=== PATIENT | male | born 1990 | race Hispanic/Latino ===

== ENCOUNTER 2023-07-12 20:49 | Observation (INO) | payer OTHER, SELFPAY ==
--- OUTSIDE RECORDS SUMMARY | 2023-07-12 20:52 | XMS REPORT | Continuity of Care Document ---
:1990 Author Organization [facility] t Address [address] [facility] [place] [address] Care Team Providers Name Role Phone Unavailable Unavailable Unavailable Payers Payer Name Policy Type Policy Number Effective Date Expiration Date S ource Problems This patient has no known problems. Allergies, Adverse Reactions, Alerts Allergy Allergy Status Severity Reaction(s) Onset Inactive Treating Comm ents Source Name Type Date Date Clinician No Known DA Active U [facility] Allergie 03-03 Clear s 00:00: Nevarez [address] [place] [address] Medications This patient has no known medications. Procedures This patient has no known procedures. Encounters Start End Encounter Admission Attending Care Care Encounter Source Date/Time Date/Time Type Type Clinicians Facility Department ID 2020-11-08 Inpatient [facility] [id number] [facility]:39[facility] Test Description Test Time Test Comments Results Result Comments Source UA RFLX MICR CULT IF INDICATED 2020-11-09 03:54:00 Test Item Value Reference Range Interpretation Comme nts UA COLOR (test code = COLU) YELLOW YEL/STRAW UA APPEARANCE (test code = APPU) CLEAR CLEAR UA GLUCOSE DIPSTICK (test code = DGLUU) NEGATIVE NEGATIVE UA BILIRUBIN DIPSTICK (test code = BILU) NEGATIVE NEGATIVE UA KETONE DIPSTICK (test code = KETU) NEGATIVE NEGATIVE UA SPECIFIC GRAVITY (test code = SGU) 1.010 1.005-1.030 N UA BLOOD DIPSTICK (test code = HORACE) NEGATIVE NEGATIVE UA PH DIPSTICK (test code = EDEL) 5.0 5.0-7.0 N UA PROTEIN DIPSTICK (test code = PROU) 2+ NEGATIVE A UA UROBILINIOGEN DIPSTICK (test code = URO) 0.2 mg/dL 0.2-1.0 UA NITRITE DIPSTICK (test code = EDWIGE) NEGATIVE NEGATIVE UA LEUKOCYTE ESTERASE DIPSTICK (test code = LEUU) NEGATIVE NEGA TIVE UA WBC (test code = WBCU) 0-3 WBC/HPF 0-3 UA RBC (test code = RBCU) 4-10 RBC/HPF 0-3 UA WBC NO REFLEX (test code = WBCUCL) 0-3 WBC/HPF 0-3 UA BACTERIA (test code = BACU) NONE SEEN /HPF NONE SEEN UA SQUAMOUS CELLS (test code = SQU) 0-5 /HPF NONE SEEN UA MUCUS (test code = MUCU) 1+ /LPF NONE SEEN Indication for culture: Flank PainSpecimen Description: CLEAN CATCHUA RFLX MICR CULT IF [id number] 00:27:00 Test Item Value Reference Range Interpretation Comments UA COLOR (test code = COLU) YELLOW YEL/STRAW UA APPEARANCE (test code = CLEAR CLEAR APPU) UA GLUCOSE DIPSTICK (test code NEGATIVE = DGLUU) UA BILIRUBIN DIPSTICK (test NEGATIVE code = BILU) UA KETONE DIPSTICK (test code NEGATIVE = KETU) UA SPECIFIC GRAVITY (test code 1.005-1.030 = SGU) UA BLOOD DIPSTICK (test code = NEGATIVE HORACE) UA PH DIPSTICK (test code = 5.0-7.0 N EDEL) UA PROTEIN DIPSTICK (test code NEGATIVE = PROU) UA UROBILINIOGEN DIPSTICK mg/dL 0.2-1.0 (test code = URO) UA NITRITE DIPSTICK (test code NEGATIVE = EDWIGE) UA LEUKOCYTE ESTERASE DIPSTICK NEGATIVE (test code = LEUU) UA WBC (test code = WBCU) 0-3 WBC/HPF 0-3 UA RBC (test code = RBCU) 4-10 RBC/HPF 0-3 UA WBC NO REFLEX (test code = 0-3 WBC/HPF 0-3 WBCUCL) UA BACTERIA (test code = BACU) NONE SEEN /HPF NONE SEEN UA SQUAMOUS CELLS (test code = 0-5 /HPF NONE SEEN SQU) UA MUCUS (test code = MUCU) 1+ /LPF NONE SEEN Indication for culture: Flank PainSpecimen Description: CLEAN CATCH- CT ABD PELVIS [id number] 23:52:00 [facility] 1990 Sex: M Name: TIMMY THOMSON [facility] : 1990 Age/S: 30 / M [address] [place] [address] Blvd Unit #: [id number] Loc: [place] [address] Phys: Juliet Morgan TRAINING PROGRAM DEVELOPER Acct: [id number] Dis Date: Status: REG ER PHONE #: [phone] Exam Date: 11/08/2020 2308 FAX #: [phone] Reason: diffuse abdominal pain EXAMS: CPT CODE: [id number] CT ABD PELVIS W/CONT 18170 CT abdomen and pelvis with contrast dated 11/08/2020 INDICATION: Diffuse abdominal pain. COMPARISON: None. TECHNIQUE: A CT of the abdomen pelvis was performed using helical images from the thoracic outlet through the pubic symphysis with subsequent sagittal and coronal reconstruction. IV CONTRAST: 100 cc of Isovue-300 GI CONTRAST: None. CT imaging performed at this location utilizes radiation dose optimization techniques which include one or more of the followin) Automated exposure control; 2) Adjustment of mA and/or kV; 3) Use of iterative reconstructive technique. CT radiation dose DLP (mGy-cm): 156. FINDINGS: SOLID ORGANS: No acute CT abnormalities of the liver, spleen, pancreas, adrenal glands or kidneys are detected. There is no CT evidence of acute renal collecting system obstruction or calcified renal collecting system stone. BILIARY: The gallbladder is normally distended. No significant biliary ductal dilatation is identified. BOWEL: Bowel assessment is limited by the absence of bowel contrast. The stomach is distended but is otherwise unremarkable. The presence of increased gas and fluid within nondilated small bowel isnonspecific however can be seen in gastroenteritis. There is no evidence of acute small bowel obstruction. The appendix is identified and is not acutely inflamed. Diffuse gaseous distention of the colon is present without evidence of obstruction. The finding of fluid in the rectum likely indicates an acute diarrheal state. There is no evidence of diverticular disease or acute inflammatory colonic wall thickening. PERITONEUM: There is no evidence of free intraperitoneal air or significant free intraperitoneal fluid. RETROPERITONEUM: The abdominal aorta demonstrates no evidence of aneurysm or dissection. There is no evidence of retroperitoneal mass PAGE 1 Signed Report (CONTINUED) Name: TIMMY THOMSON [facility] : 1990 Age/S: 30 / M [address] [place] [address] Unit #: [id number] Loc: [place] [address] Phys: Juliet Morgan Acct: [id number] Dis Date: Status: REG ER PHONE #: Exam Date: 11/08/20202307 FAX #: [phone] Reason: diffuse abdominal pain EXAMS: CPT CODE: [id number] CT ABD PELVIS W/CONT 07763 (Continued) or adenopathy. PELVIS: The bladder has an unremarkable appearance. No enlarged pelvic lymph nodes are noted. LOWER CHEST: The lung bases appear clear of acute disease. ADDITIONAL FINDINGS: None. IMPRESSION: 1. The presence of increased gas and fluid in the small intestine is nonspecific however can be seen in gastroenteritis. There is no evidence of acute small bowel obstruction. 2. Diffuse gaseous distention of the colon without evidence of colonic obstruction. The finding of fluid in the rectum likely indicates an acute diarrheal state. No inflammatory colonic wall thickening or pericolonic inflammatory changes are noted. SL: 131 at 2352 Reported and signed by: Davon Morrison M.D. CC: Juliet Morgan Technologist:Lauren Sosa, RT(R)(CT) CTDI: DLP: Trnscb Date/Time: 11/08/2020 (7125) Anita Orig Print D/T: S: 11/08/2020 (3106) PAGE 2 Signed Report- US ABDOMEN [id number] 23:24:00 [facility] : 1990 Sex: M Name: TIMMY THOMSON [facility] : 1990 Age/S: 30 / M [address] [place] [address] Bl Unit #: [id number] Loc: [place] [address] Phys: Lj Rangel NP Acct: [id number] Dis Date: Status:REG ER PHONE #: [phone] Exam Date: 11/08/2020 2318 FAX #: [phone] Reason: Epigastric pain,hx of gallstones EXAMS: CPT CODE: [id number] US ABDOMEN [facility] [address] RIGHT UPPER QUADRANT ULTRASOUND DATED 11/08/2020 INDICATION: Acute epigastric abdominal pain. Prior history of gallstones. COMPARISON: None TECHNIQUE: Sonographic evaluation of the right upper quadrant was performed with supplemental color and pulsed Doppler. FINDINGS: LIVER: The liver is normal in contour and morphology with normal par enchymal echogenicity. GALLBLADDER: The gallbladder is normally distended without evidence of gallstones. There is no evidence of gallbladder wall thickening or pericholecystic fluid to suggest acute inflammation. The sonographic Carpio's sign was reported as negative. BILE DUCTS: The common duct is normal in caliber measuring 2.5 mm. PANCREAS: The pancreas is largely obscured by bowel gas. A segmentof the pancreatic body is imaged and appears grossly normal. RIGHT KIDNEY: The right kidney 10.1 cm longitudinally and maintains normal cortical thickness and normal cortical echotexture without evidence of acute collecting system obstruction. Additional comments: No free intraperitoneal fluid is identified in the right upper quadrant. The inferior vena cava is patent. The abdominal aorta is not well visualized. IMPRESSION: 1. No sonographic evidence of cholelithiasis or acute cholecystitis. SL:131 at 2324 Reported and signed by: Davon Morrison M.D. PAGE 1 Signed Report (CONTINUED) Name: TIMMY THOMSON [facility] : 1990 Age/S: 30 / M [address] [place] [address] Unit #: [id number] Loc: [place] [address] Phys: Lj Rangel NP Acct: [id number] Dis Date: Status: REG ER PHONE #: [phone] Exam Date: 11/08/2020 2318 FAX #: [phone] Reason: Epigastric pain, hx of gallstones EXAMS: CPT CODE: [id number] ABDOMEN LTD 53887 (Continued) CC: Lj Rangel NP Technologist: Patricia Stanley RDMS(BR)(AB) Trnscb Date/Time: 11/08/2020 (2323) tJAY Orig Print D/T: S: 11/08/2020 (2326) Probe: PAGE 2 Signed ReportBASIC METABOLIC [id number] 22:50:00 Test Item Value Reference Range Interpretation Comments SODIUM (test code = NA) 135 mEq/L 134-147 N POTASSIUM (test code = 3.4 mEq/L 3.4-5.0 N K) CHLORIDE (test code = 101 mEq/L 100-108 N CL) CARBON DIOXIDE (test 26 mEq/l 21-33 N code = CO2) ANION GAP (test code = 12 0-20 N GAP) GLUCOSE (test code = 137 mg/dL 70-110 H GLU) BLOOD UREA NITROGEN 9 mg/dL 7-18 N (test code = BUN) GLOMERULAR FILTRATION 113.5 105-110 H Units of measure = RATE (test code = GFR) ml/mi n/1.73 m2 CREATININE (test code = 0.8 mg/dL 0.6-1.3 N CREAT) CALCIUM (test code = 8.6 mg/dL 8.0-10.5 N CA) HEPATIC FUNCTION [id number] 22:50:00 Test Item Value Reference Range Interpretation Comments TOTAL PROTEIN (test code = PROT) 6.1 g/dL 6.4-8.2 L ALBUMIN (test code = ALB) 3.40 g/dL 3.4-5.0 N BILIRUBIN TOTAL (test code = BILT) 0.30 mg/dL 0.0-1.0 N BILIRUBIN DIRECT (test code = 0.10 MG/DL 0.0-0.30 N BILD) BILIRUBIN INDIRECT (test code = 0.20 MG/DL BILIND) SGOT/AST (test code = AST) 17 IUnit/L 15-37 N SGPT/ALT (test code = ALT) 12 IUnit/L 30-65 L ALKALINE PHOSPHATASE TOTAL (test 83 IUnit/L 20-125 N code = ALKP) [id number] 22:50:00 Test Item Value Reference Range Interpretation Comments LIPASE (test code = LIP) 25 U/L 13-57 N CBC W/AUTO [id number] 22:28:00 Test Item Value Reference Range Interpretation Comments WHITE BLOOD CELL (test code = 13.0 x10 3/uL 4.5-11.0 H WBC) RED BLOOD CELL (test code = 6.55 x10 6/uL 4.00-5.60 H RBC) HEMOGLOBIN (test code = HGB) 17.2 g/dL 12.5-16.9 H HEMATOCRIT (test code = HCT) 54.1 % 37.5-50.7 H MEAN CELL VOLUME (test code = 82.6 fL 81.0-99.0 N MCV) MEAN CELL HGB (test code = MCH) 26.3 pg 27.0-33.0 L MEAN CELL HGB CONCETRATION 31.8 g/dL 33.0-37.0 L (test code = MCHC) RED CELL DISTRIBUTION WIDTH CV 13.1 % 11.5-14.5 N (test code = RDW) RED CELL DISTRIBUTION WIDTH SD 39.3 fL 37.0-54.0 N (test code = RDW-SD) PLATELET COUNT (test code = 339 x10 3/uL 150-400 N PLT) MEAN PLATELET VOLUME (test code 10.0 fL 7.0-9.0 H = MPV) NEUTROPHIL % (test code = NT%) 61.3 % 56.0-77.0 N IMMATURE GRANULOCYTE % (test 1.7 % 0.0-2.0 N code = IG%) LYMPHOCYTE % (test code = LY%) 15.4 % 14.0-32.0 N MONOCYTE % (test code = MO%) 13.1 % 4.8-9.0 H EOSINOPHIL % (test code = EO%) 7.8 % 0.3-3.7 H BASOPHIL % (test code = BA%) 0.7 % 0.0-2.0 N NUCLEATED RBC % (test code = 0.0 % 0-0 N NRBC%) NEUTROPHIL # (test code = NT#) 7.95 x10 3/uL 2.0-7.6 H IMMATURE GRANULOCYTE # (test 0.22 x10 3/uL 0.00-0.03 H code = IG#) LYMPHOCYTE # (test code = LY#) 1.99 x10 3/uL 1.0-3.8 N MONOCYTE # (test code = MO#) 1.69 x10 3/uL 0.1-0.8 H EOSINOPHIL # (test code = EO#) 1.01 x10 3/uL 0.0-0.2 H BASOPHIL # (test code = BA#) 0.09 x10 3/uL 0.0-0.2 N NUCLEATED RBC # (test code = 0.00 x10 3/uL 0.0-0.1 N NRBC#) MANUAL DIFF REQUIRED (test code NO = MDIFF)
[2023-07-12 21:28] LABS: Absolute Lymphocytes (CBC) 0.6 K/uL (0.7-4.9); Lymphocytes % 5.2 % (15.3-44.8); MCV 81.5 fL (80-100); MPV 8.6 fL (7.6-11.3); Platelets 242 thou/uL (152-406); RBC Red Blood Cell Count 6.26 M/uL (4.33-5.43)
[2023-07-12] MEDS ORDERED: ONDANSETRON 4 MG/2 ML VIAL ONE (21:29)
[2023-07-12] MEDS ORDERED: KETOROLAC 30 MG/ML INJ ONE (21:34)
[2023-07-12] MEDS ORDERED: NA CHLORIDE 0.9% 1,000 ML ONE ×2 (21:34→21:50)
[2023-07-12] MEDS ORDERED: METOCLOPRAMIDE 10 MG/2mL INJ ONE (21:34)
[2023-07-12 21:43] LABS: Albumin 3.9 g/dL (3.4-5.0); Bilirubin Total 0.8 mg/dL (0.2-1.0); Protein, Total 8.6 g/dL (6.4-8.2)
[2023-07-12 21:46] LABS: Specific Gravity > 1.030 (1.005-1.030); Urine Bacteria <20 /HPF (<20); Urine Bilirubin NEGATIVE (Negative); Urine Blood Negative (Negative); Urine Clarity Turbid (Clear); Urine Color Yellow (Yellow); Urine Glucose TRACE (Negative); Urine Mucus 2+ /HPF (None Seen); Urine Protein 1+ (Negative); Urine RBC <5 /HPF (None Seen); Urine Urobilinogen Normal (Normal); Urine pH 5.5 (5.0-7.0)
[2023-07-12 21:48] LABS: Potassium 3.9 mEq/L (3.5-5.1)
--- NOTE | 2023-07-12 22:38 | RAD REPORT ---
EXAM DESCRIPTION: CT - Abdomen Pelvis W Contrast - 07/12/2023 10:14 pm CLINICAL HISTORY: ABD PAIN COMPARISON: No comparisons TECHNIQUE: Thin cut axial CT imaging of the abdomen and pelvis was performed following intravenous a dministration of 100 mL Isovue 300. Multiplanar reformats were generated and reviewed. All CT scans are performed using dose optimization technique as appropriate and may include automated exposure control or mA/KV adjustment according to patient size. FINDINGS: No suspicious findings in the lung bases. The liver, spleen, adrenal glands, and pancreas show no suspicious findings. Gallbladder and biliary tree are also without suspicious finding. Symmetric renal function is seen with no hydronephrosis or suspicious renal mass. Fluid-filled nondistended small and large bowel loops. Segmental areas of wall thickening and mucosal hyperenhancement most pronounced along the ascending and proximal transverse colon, and to lesser ex tent along segments of the distal ileum, although mild mucosal hyperenhancement is seen elsewhere in the small and large bowel. No fistulas or fluid collections. . No free air, free fluid or inflammator y stranding. No hernia, mass or bulky lymphadenopathy. The urinary bladder is decompressed limiting e valuation. No suspicious bony findings. IMPRESSION: Inflammatory wall thickening segmentally along the ileum and proximal colon as above, wi th diffusely fluid-filled nondistended bowel. Findings suggest infectious or inflammatory enterocolit is.
[2023-07-12] MEDS ORDERED: CEFTRIAXONE 1000 MG/VIAL ONE (22:57)
[2023-07-12] MEDS ORDERED: METRONIDAZOLE 500mg IVPB 500 MG/100 ML BAG IV ONE (22:57)
[2023-07-12 23:07] LABS: Blood Morphology Comment NOT SEEN (NOT SEEN); Platelet Estimate ADEQ
--- NOTE | 2023-07-12 23:11 | P.HP ---
Certification for Inpatient Patient admitted to: Observation With expected LOS: <2 Midnights Patient will require the following post-hospital care: None Practitioner: I am a practitioner with admitting privileges, knowledge of patient current condition, hospital course, and medical plan of care. Services: Services provided to patient in accordance with Admission requirements found in Title 42 Section 412.3 of the Code of Federal Regulations Patient History Date of Service: 07/12/23 Reason for admission: Enterocolitis History of Present Illness: Mr. Miller is a healthy 32-year-old male who presented to the emergency department with complaints of abdominal pain, nausea, vomiting, and diarrhea x3 days. brought him in because his symptoms are worsening and he could no longer hold any food or liquid down. He was mildly tachycardic at 104 with a low-grade fever of 99.1 upon arrival to the emergency department. His work-up revealed a white blood cell count of 12.6 with left shift, bandemia of 52%, sodium 129, chloride 94. His CT showed "inflammatory wall thickening segmentally along the ileum and proximal colon, with diffusely fluid-filled nondistended bowel. Findings suggest infectious or inflammatory enterocolitis." He was still vomiting despite Zofran and Reglan. He was additionally given 2L of IV fluids, Toradol, Rocephin, and Flagyl. ED provider wishes to admit patient for further management of acute enterocolitis and intractable nausea and vomiting. Allergies Penicillins Allergy (Unknown, Verified 07/18/12 19:21) FAMILY ALLERGY NKDA Allergy (Uncoded 08/29/15 01:55) Unknown Home medications list reviewed: Yes (NA) - Past Medical/Surgical History Diabetic: No Past Medical History: Patient denies medical history -: Right wrist Psychosocial/ Personal History: patient is . lives at home with his and 2 children. - Family History Family History: Reviewed- Non-Contributory - Social History Smoking Status: Current every day smoker Alcohol use: Yes CD- Drugs: No Caffeine use: Yes Place of Residence: Home Review of Systems 10-point ROS is otherwise unremarkable General: Malaise Gastrointestinal: Nausea, Vomiting, Abdominal Pain, Diarrhea Physical Examination - Vital Signs Temperature: 99.1 F Blood Pressure: 118/81 Pulse: 99 Respirations: 16 Pulse Ox (%): 99 - Physical Exam General: Alert, In no apparent distress HEENT: Atraumatic, EOMI, Sclerae nonicteric Neck: Supple, JVD not distended Respiratory: Clear to auscultation bilaterally, Normal air movement Cardiovascular: Regular rate/rhythm, Normal S1 S2 Gastrointestinal: Hypoactive, Non-distended Musculoskeletal: No tenderness Integumentary: No rashes Neurological: Normal speech, Normal affect - Studies Laboratory Data (last 24 hrs) 07/12/23 07/12/23 21:10 21:10 WBC 12.60 H Hgb 16.9 Hct 51.0 H Plt Count 242 Sodium 129 L Potassium 3.9 BUN 17 Creatinine 1.24 Glucose 127 H Total Bilirubin 0.8 AST 28 ALT 30 Alkaline Phosphatase 92 Lipase 14 Microbiology Data (last 24 hrs): 07/12/23 21:16 Nasopharnyx Influenza Type A Antigen Screen - Final 07/12/23 21:16 Nasopharnyx Influenza Type B Antigen Screen - Final Assessment and Plan - Problems (Diagnosis) (1) Enterocolitis Current Visit: Yes Status: Acute (2) Hyponatremia Current Visit: Yes Status: Acute (3) Sepsis Current Visit: Yes Status: Acute Qualifiers: Sepsis type: sepsis due to unspecified organism Sepsis acute organ dysfunction status: without acute organ dysfunction Qualified Code(s): A41.9 - Sepsis, unspecified organism - Plan Patient is admitted for further management of sepsis secondary to enterocolitis. Unclear if bacterial or viral, however patient does meet sepsis criteria. Blood cultures were not obtained at the emergency department prior to antibiotic administration. Will obtain blood cultures now as well as lactic acid and stool cultures. Received rocephin and flagyl in ED. Will continue to cover possible bacterial source. Continue IV hydration, clear liquid diet until patient can tolerate further. Antiemetics as needed. Repeat labs in the morning to monitor mild hyponatremia, likely secondary to volume depletion. SCDs for VTE prophylaxis. Full code. Discharge Plan: Home Plan to discharge in: 24 Hours - Advance Directives Does patient have a Living Will: No Does patient have a Durable POA for Healthcare: No - Code Status/Comfort Care Code Status Assessed: Yes Code Status: Full Code Physician Review: Patient Assessed, Agree with Above Assessment and Plan Critical Care: No Time Spent Managing Pts Care (In Minutes): 30
--- NOTE | 2023-07-12 23:20 | EDPHYS ---
Physician Documentation [facility] Name: Yosi Miller Age: 32 yrs Sex: Male : 1990 Arrival Date: 07/12/2023 Time: 20:49 Bed 13 Private MD: ED Physician Garrett Moreno HPI: 07/12 21:08 This 32 yrs old Male presents to ER via Ambulatory with complaints of Flu sp4 Symptoms, Nausea/Vomiting. 23:19 Patient presents with persistent nausea vomiting watery diarrhea and diffuse abdominal sp4 pain starting 3 days ago. Patient denied any sick contacts at home. Denied bloody diarrhea reported fevers and feeling unwell. Historical: - Allergies: 21:01 No Known Allergies; pf1 - PMHx: 21: None; pf1 - PSHx: 21:01 None; pf1 - Immunization history:: Adult Immunizations not up to date, Client reports having NOT received the Covid vaccine. Flu vaccine is not up to date. - Social history:: Smoking status: Patient reports the use of cigarette tobacco products, smokes one-half pack cigarettes per day. - Family history:: not pertinent. ROS: 23:19 Constitutional: Positive fever positive generalized weakness positive nausea positive sp4 vomiting positive diarrhea , positive abdominal pain 23:19 All other systems are negative, Exam: 23:19 Constitutional: This is a well developed, well nourished patient who is awake, alert, sp4 ill-appearing male, nontoxic-appearing signs of dehydration, Head/Face: Normocephalic, atraumatic. Eyes: Pupils equal round and reactive to light, extra-ocular motions intact. Lids and lashes normal. Conjunctiva and sclera are not injected. Cornea within normal limits. Periorbital areas with no swelling, redness, or edema. ENT: Nares patent. No nasal discharge, no septal abnormalities noted. Tympanic membranes are normal and external auditory canals are clear. Oropharynx with no redness, swelling, or masses, exudates, or evidence of obstruction, uvula midline. Mucous membranes moist. Neck: Trachea midline, no thyromegaly or masses palpated, and no cervical lymphadenopathy. Supple, full range of motion without nuchal rigidity, or vertebral point tenderness. Chest/axilla: Normal chest wall appearance and motion. Nontender with no deformity. No lesions are appreciated. Cardiovascular: Regular rate and rhythm with a normal S1 and S2. No gallops, murmurs, or rubs. Normal PMI, no JVD. No pulse deficits. Respiratory: Lungs have equal breath sounds bilaterally, clear to auscultation and percussion. No rales, rhonchi or wheezes noted. No increased work of breathing, no retractions or nasal flaring. Abdomen/GI: Soft, with normal bowel sounds. No distension or tympany. No guarding or rebound. Positive generalized abdominal discomfort to palpation without rebound or signs of peritonitis Back: No spinal tenderness. No costovertebral tenderness. Skin: Warm, dry with normal turgor. Normal color with no rashes, no lesions, and no evidence of cellulitis. MS/ Extremity: Pulses equal, no cyanosis. Neurovascular intact. Full, normal range of motion. Neuro: Awake and alert, GCS 15, oriented to person, place, time, and situation. Cranial nerves II-XII grossly intact. Motor strength 5/5 in all extremities. Sensory grossly intact. Psych: Awake, alert, with orientation to person, place and time. Behavior, mood, and affect are within normal limits Vital Signs: 21:01 BP 122 / 82; Pulse 104; Resp 15; Temp 99.1; Pulse Ox 99% ; Weight 72.57 kg; Height 5 vc1 ft. 9 in. ; Pain 8/10; 22:17 BP 118 / 81; Pulse 99; Resp 16 S; Pulse Ox 99% on R/A; lg3 22:45 BP 97 / 64; Pulse 87; Resp 16; Pulse Ox 100% on R/A; pf1 07/13 00:01 BP 105 / 65; Pulse 86; Resp 16; Temp 98.8; Pulse Ox 100% on R/A; Pain 0/10; pf1 00:30 BP 111 / 67; Pulse 88; Resp 16; Pulse Ox 100% on R/A; pf1 07/12 21:01 Body Mass Index 23.63 (72.57 kg, 175.26 cm) vc1 07/12 21:01 Pain Scale: Adult vc1 07/13 00:01 Pain Scale: Adult pf1 MDM: 07/12 21:12 Patient medically screened. sp4 22:59 ED course: CT abdomen / pelvis - EXAM DESCRIPTION: CT - Abdomen Pelvis W Contrast - sp4 07/12/2023 10:14 pm CLINICAL HISTORY: ABD PAIN COMPARISON: No comparisons TECHNIQUE: Thin cut axial CT imaging of the abdomen and pelvis was performed following intravenous administration of 100 mL Isovue 300. Multiplanar reformats were generated and reviewed. All CT scans are performed using dose optimization technique as appropriate and may include automated exposure control or mA/KV adjustment according to patient size. FINDINGS: No suspicious findings in the lung bases. The liver, spleen, adrenal glands, and pancreas show no suspicious findings. Gallbladder and biliary tree are also without suspicious finding. Symmetric renal function is seen with no hydronephrosis or suspicious renal mass. Fluid-filled nondistended small and large bowel loops. Segmental areas of wall thickening and mucosal hyperenhancement most pronounced along the ascending and proximal transverse colon, and to lesser extent along segments of the distal ileum, although mild mucosal hyperenhancement is seen elsewhere in the small and large bowel. No fistulas or fluid collections. . No free air, free fluid or inflammatory stranding. No hernia, mass or bulky lymphadenopathy. The urinary bladder is decompressed limiting evaluation. No suspicious bony findings. IMPRESSION: Inflammatory wall thickening segmentally along the ileum and proximal colon as above, with diffusely fluid-filled nondistended bowel. Findings suggest infectious or inflammatory enterocolitis.. 23:19 Differential diagnosis: Nonspecific abd pain, gastritis, cholecystitis, pancreatitis, sp4 appendicitis, diverticulitis, viral gastroenteritis, gastroenteritis. Data reviewed: vital signs, nurses notes, old medical records, lab test result(s), Flu: negative radiologic studies, CT scan. Consideration of Admission/Observation Patient was admitted/placed on observation. Escalation of care including admission/observation considered. Management of patient was discussed with the following: Hospitalist: Discussed with admission team. ED course: Patient has no signs of bloody diarrhea on rectal exam, still appears unwell and not able to keep anything down. Patient warrants admission for medical management also will order Rocephin and Flagyl for possible bacterial enteritis. 07/12 21:11 Order name: COVID-19 SARS RT PCR; Complete Time: 22:05 sp4 07/12 21:11 Order name: Influenza Screen (a \T\ B); Complete Time: 22:05 sp4 07/12 21:14 Order name: CBC with Diff; Complete Time: 23:11 sp4 07/12 21:14 Order name: CMP; Complete Time: 22:05 4 07/12 21:14 Order name: Lipase; Complete Time: 22:05 4 07/12 21:27 Order name: Urinalysis W/Microscopic; Complete Time: 22:05 4 07/12 22:05 Order name: Alcohol Level; Complete Time: 22:37 4 07/12 22:38 Order name: Manual Differential; Complete Time: 23:11 EDMS 07/12 23:12 Order name: Blood Culture Adult (2) [facility] 07/12 23:12 Order name: Lactate w/ 2H reflex if indic.; Complete Time: 00:38 [facility] 07/12 21:27 Order name: CT Abd/Pelvis - IV Contrast Only; Complete Time: 22:47 [facility] 07/12 21:14 Order name: IV Saline Lock; Complete Time: 21:14 [facility] 07/12 21:14 Order name: Labs collected and sent; Complete Time: 21:14 4 Administered Medications: 21:18 Drug: Ondansetron IVP 8 mg IVP once; over 2 minutes Route: IVP; Site: right antecubital;pf1 23:19 Follow up: Response: No adverse reaction; Nausea is decreased km8 21:26 Drug: Ketorolac IVP 30 mg IVP once Route: IVP; Site: right antecubital; pf1 22:20 Follow up: Response: No adverse reaction; Marked relief of symptoms; Pain is decreased pf1 21:28 Drug: metoCLOPramide IVP 10 mg IVP once; over 1 to 2 minutes Route: IVP; Site: right pf1 antecubital; 22:20 Follow up: Response: No adverse reaction; Marked relief of symptoms; Nausea is decreasedpf1 21:28 Drug: NS 0.9% IV 1000 ml IV at 1 bolus Per protocol; 1000 mL bolus Route: IV; Rate: 1 pf1 bolus; Site: right antecubital; 22:50 Follow up: Response: No adverse reaction; Marked relief of symptoms; IV Status: pf1 Completed infusion; IV Intake: 1000ml 21:37 Drug: NS 0.9% IV 1000 ml IV at 1 bolus Per protocol; 1000 mL bolus Route: IV; Rate: 1 pf1 bolus; Site: right antecubital; 22:50 Follow up: Response: No adverse reaction; Marked relief of symptoms pf1 23:57 Follow up: IV Status: Completed infusion; IV Intake: 1000ml pf1 22:45 Drug: Rocephin - Rocephin (cefTRIAXone) IVPB 1 grams IVPB once over 30 mins; (mix in 50 pf1 mL NS) Route: IVPB; Infused Over: 30 mins; Site: right antecubital; 23:19 Follow up: Response: No adverse reaction; IV Status: Completed infusion; IV Intake: [id number] 23:55 Drug: metroNIDAZOLE IVPB 500 mg 100 ml IVPB at 200 ml/hr once over 30 mins Volume: 100 pf1 ml; Route: IVPB; Rate: 200 ml/hr; Infused Over: 30 mins; Site: right antecubital; 07/13 00:40 Follow up: IV Status: Infusion continued upon admission pf1 Disposition Summary: 07/12/23 23:19 Hospitalization Ordered Notes: Hospitalization Status: Observation sp4 Provider: Thomas Rios sp4 Location: Telemetry/MedSurg (observation) sp4 Condition: Fair sp4 Problem: new sp4 Symptoms: have improved sp4 Bed/Room Type: Standard sp4 Room Assignment: 405(07/12/23 23:19) as6 Diagnosis - Vomiting, unspecified sp4 - Hypo-osmolality and hyponatremia sp4 - Dehydration sp4 - Acute enterocolitis, leukocytosis, hyponatremia, hypokalemia, intractable vomiting sp4 Forms: - Medication Reconciliation Form sp4 - SBAR form sp4 - Leadership Thank You Letter sp4 Signatures: Dispatcher [employer] Zaire Sorto RN RN as6 Katherin Ornelas PA-C PASivakumar sb4 Luz Maria Lopez RN RN pf1 Garrett Moreno MD MD sp4 Gloria Paiz RN km8 Corrections: (The following items were deleted from the chart) 07/12 23:19 23:19 sp4 as6
--- NOTE | 2023-07-12 23:20 | ER ---
Nurse's Notes [facility] Name: Yosi Miller Age: 32 yrs Sex: Male : 1990 Arrival Date: 07/12/2023 Time: 20:49 Bed 13 Private MD: Diagnosis: Vomiting, unspecified;Hypo-osmolality and hyponatremia;Dehydration;Acute enterocolitis, leukocytosis, hyponatremia, hypokalemia, intractable vomiting Presentation: 07/12 21:01 Chief complaint: Patient states: I've been sick for 2 days vomiting and I can't keep vc1 anything down. My stomach hurts really bad. Coronavirus screen: Vaccine status: Patient reports being unvaccinated. Client denies travel out of the [place] in the last 14 days. muscle pain, nausea, vomiting. Client presents with at least one sign or symptom that may indicate coronavirus-19. Ebola Screen: Patient negative for fever greater than or equal to 101.5 degrees Fahrenheit, and additional compatible Ebola Virus Disease symptoms Patient denies exposure to infectious person. Patient denies travel to an Ebola-affected area in the 21 days before illness onset. No symptoms or risks identified at this time. Initial Sepsis Screen: Does the patient meet any 2 criteria? No. Patient's initial sepsis screen is negative. Does the patient have a suspected source of infection? No. Patient's initial sepsis screen is negative. Risk Assessment: Do you want to hurt yourself or someone else? Patient reports no desire to harm self or others. Onset of symptoms was July 10, 2023. 21:01 Method Of Arrival: Ambulatory vc1 21:01 Acuity: HARRY 3 vc1 Triage Assessment: 21:05 General: Appears in no apparent distress. uncomfortable, ill, Behavior is calm, vc1 cooperative, appropriate for age. Pain: Complains of pain in right upper quadrant and left upper quadrant Pain does not radiate. Pain currently is 8 out of 10 on a pain scale. Quality of pain is described as aching, crampy, Pain began suddenly, 2-3 days ago. Is continuous, Aggravated by eating, drinking, Also complains of nausea, vomiting. EENT: No deficits noted. No signs and/or symptoms were reported regarding the EENT system. Neuro: Level of Consciousness is awake, alert, obeys commands, Oriented to person, place, time, situation, Appropriate for age. Cardiovascular: No deficits noted. Respiratory: Airway is patent Respiratory effort is even, unlabored, Respiratory pattern is regular, symmetrical. GI: Reports upper abdominal pain, intolerance of fluids, intolerance of food, nausea, vomiting, since 07-10-23. : No deficits noted. No signs and/or symptoms were reported regarding the genitourinary system. Derm: No deficits noted. No signs and/or symptoms reported regarding the dermatologic system. Musculoskeletal: No deficits noted. No signs and/or symptoms reported regarding the musculoskeletal system. Historical: - Allergies: 21: No Known Allergies; pf1 - PMHx: : None; pf1 - PSHx: 21: None; pf1 - Immunization history:: Adult Immunizations not up to date, Client reports having NOT received the Covid vaccine. Flu vaccine is not up to date. - Social history:: Smoking status: Patient reports the use of cigarette tobacco products, smokes one-half pack cigarettes per day. - Family history:: not pertinent. Screenin:02 [facility] ED Fall Risk Assessment (Adult) History of falling in the last 3 months, pf1 including since admission No falls in past 3 months (0 pts) Confusion or Disorientation No (0 pts) Intoxicated or Sedated No (0 pts) Impaired Gait No (0 pts) Mobility Assist Device Used No (0 pt) Altered Elimination No (0 pt) Score/Fall Risk Level 0 - 2 = Low Risk Oriented to surroundings, Maintained a safe environment, Educated pt \T\ family on fall prevention, incl call for assistance when getting out of bed, Assessed \T\ reinforced patient's understanding of fall precautions, Provided non-skid footwear, Hourly rounding (assess needs \T\ fall precautionary measures) done, Used ambulatory aids as needed (educated on \T\ assisted with), Used gait belt as appropriate. Abuse screen: Denies threats or abuse. Nutritional screening: No deficits noted. Tuberculosis screening: No symptoms or risk factors identified. Assessment: 21:02 General: Appears in no apparent distress. comfortable, well groomed, well developed, pf1 Behavior is calm, cooperative, appropriate for age, quiet. Pain: Complains of pain in abdomen Pain began 2-3 days ago. Neuro: No deficits noted. Level of Consciousness is awake, alert, obeys commands, Oriented to person, place, time, situation. Cardiovascular: No deficits noted. Capillary refill < 3 seconds Patient's skin is warm and dry. Respiratory: No deficits noted. Airway is patent Respiratory effort is even, unlabored, Respiratory pattern is regular, symmetrical. GI: Abdomen is flat, non-distended, Reports lower abdominal pain, upper abdominal pain, nausea, vomiting. : No deficits noted. No signs and/or symptoms were reported regarding the genitourinary system. EENT: No deficits noted. No signs and/or symptoms were reported regarding the EENT system. 22:17 Reassessment: Patient appears in no apparent distress at this time. No changes from lg3 previously documented assessment. Patient and/or family updated on plan of care and expected duration. Pain level reassessed. Patient is alert, oriented x 3, equal unlabored respirations, skin warm/dry/pink. 23:30 Reassessment: Patient appears in no apparent distress at this time. No changes from pf1 previously documented assessment. Patient and/or family updated on plan of care and expected duration. Pain level reassessed. Patient is alert, oriented x 3, equal unlabored respirations, skin warm/dry/pink. Patient states feeling better. Patient states symptoms have improved. 07/13 00:27 Reassessment: critical lab Lactate=2.2 from [place] in lab; Dr. Moreno notified. km8 00:30 Reassessment: Patient appears in no apparent distress at this time. Patient and/or pf1 family updated on plan of care and expected duration. Pain level reassessed. Patient is alert, oriented x 3, equal unlabored respirations, skin warm/dry/pink. Patient states feeling better. Vital Signs: 07/12 21:01 BP 122 / 82; Pulse 104; Resp 15; Temp 99.1; Pulse Ox 99% ; Weight 72.57 kg; Height 5 vc1 ft. 9 in. ; Pain 8/10; 22:17 BP 118 / 81; Pulse 99; Resp 16 S; Pulse Ox 99% on R/A; lg3 22:45 BP 97 / 64; Pulse 87; Resp 16; Pulse Ox 100% on R/A; pf1 07/13 00:01 BP 105 / 65; Pulse 86; Resp 16; Temp 98.8; Pulse Ox 100% on R/A; Pain 0/10; pf1 00:30 BP 111 / 67; Pulse 88; Resp 16; Pulse Ox 100% on R/A; pf1 07/12 21:01 Body Mass Index 23.63 (72.57 kg, 175.26 cm) vc1 07/12 21:01 Pain Scale: Adult vc1 07/13 00:01 Pain Scale: Adult pf1 ED Course: 07/12 20:55 Patient arrived in ED. gm2 21:03 Patient has correct armband on for positive identification. Bed in low position. Call pf1 light in reach. 21:04 Triage completed. vc1 21:06 Arm band placed on right wrist. vc1 21:08 Garrett Moreno MD is Attending Physician. sp4 21:12 Mulu Moore, NOEMI is Primary Nurse. lg3 21:15 Inserted saline lock: 22 gauge in right antecubital area, using aseptic technique. pf1 Blood collected. 21:35 Urinalysis W/Microscopic Sent. pf1 22:16 CT Abd/Pelvis - IV Contrast Only In Process Unspecified. EDMS 22:20 Alcohol Level Sent. lg3 23:18 Thomas Rios is Hospitalizing Provider. sp4 23:55 No provider procedures requiring assistance completed. Inserted saline lock: 22 gauge pf1 in left antecubital area, using aseptic technique. Blood collected. 23:57 Blood Culture Adult (2) Sent. pf1 07/13 00:27 Provided Education on: admission process. km8 00:27 Patient admitted, IV remains in place. km8 Administered Medications: 07/12 21:18 Drug: Ondansetron IVP 8 mg IVP once; over 2 minutes Route: IVP; Site: right antecubital;pf1 23:19 Follow up: Response: No adverse reaction; Nausea is decreased km8 21:26 Drug: Ketorolac IVP 30 mg IVP once Route: IVP; Site: right antecubital; pf1 22:20 Follow up: Response: No adverse reaction; Marked relief of symptoms; Pain is decreased pf1 21:28 Drug: metoCLOPramide IVP 10 mg IVP once; over 1 to 2 minutes Route: IVP; Site: right pf1 antecubital; 22:20 Follow up: Response: No adverse reaction; Marked relief of symptoms; Nausea is decreasedpf1 21:28 Drug: NS 0.9% IV 1000 ml IV at 1 bolus Per protocol; 1000 mL bolus Route: IV; Rate: 1 pf1 bolus; Site: right antecubital; 22:50 Follow up: Response: No adverse reaction; Marked relief of symptoms; IV Status: pf1 Completed infusion; IV Intake: 1000ml 21:37 Drug: NS 0.9% IV 1000 ml IV at 1 bolus Per protocol; 1000 mL bolus Route: IV; Rate: 1 pf1 bolus; Site: right antecubital; 22:50 Follow up: Response: No adverse reaction; Marked relief of symptoms pf1 23:57 Follow up: IV Status: Completed infusion; IV Intake: 1000ml pf1 22:45 Drug: Rocephin - Rocephin (cefTRIAXone) IVPB 1 grams IVPB once over 30 mins; (mix in 50 pf1 mL NS) Route: IVPB; Infused Over: 30 mins; Site: right antecubital; 23:19 Follow up: Response: No adverse reaction; IV Status: Completed infusion; IV Intake: 15ewcc1 23:55 Drug: metroNIDAZOLE IVPB 500 mg 100 ml IVPB at 200 ml/hr once over 30 mins Volume: 100 pf1 ml; Route: IVPB; Rate: 200 ml/hr; Infused Over: 30 mins; Site: right antecubital; 07/13 00:40 Follow up: IV Status: Infusion continued upon admission pf1 Medication: 07/12 21:06 VIS not applicable for this client. vc1 Intake: 22:50 IV: 1000ml; Total: 1000ml. pf1 23:19 IV: 50ml; Total: 1050ml. km8 23:57 IV: 1000ml; Total: 2050ml. pf1 Outcome: 23:19 Decision to Hospitalize by Provider. sp4 07/13 00:39 Admitted to Med/surg accompanied by tech, via stretcher, room 405, with chart, Report pf1 called to NOEMI Aguilar Condition: stable Instructed on the need for admit, Demonstrated understanding of instructions, 00:41 Patient left the ED. pf1 Signatures: Dispatcher [employer] EDMS Mulu Moore RN RN lg3 Amanda Guthrie RN RN vc1 Luz Maria Lopez RN RN pf1 Garrett Moreno MD MD sp4 Annemarie Hankins gm2 Gloria Paiz RN RN km8 Corrections: (The following items were deleted from the chart) 07/12 21:40 21:02 GI: Abdomen is flat, non-distended, Reports upper abdominal pain, nausea, pf1 vomiting, pf1
[2023-07-13] MEDS ORDERED: ACETAMINOPHEN 500 MG TAB PO PRN (00:37)
[2023-07-13] MEDS ORDERED: ONDANSETRON 4 MG/2 ML VIAL IV PRN (00:37)
[2023-07-13 01:26] VITALS: O2SAT 100
[2023-07-13 01:29] VITALS: BMI 21.9
[2023-07-13] MEDS: METRONIDAZOLE 500mg IVPB 500 MG/100 ML BAG IV SCH ×3 (01:30→16:14)
[2023-07-13] MEDS: NA CHLORIDE 0.9% 1,000 ML IV SCH ×3 (01:31→16:14)
[2023-07-13] MEDS ORDERED: SODIUM CHL 0.9% 1000 ML BAG IV SCH (04:00)
[2023-07-13] MEDS ORDERED: NA CHLORIDE 0.9% 1,000 ML IV ONE ×2 (04:09→05:00)
[2023-07-13 05:03] LABS: Absolute Lymphocytes (CBC) 0.6 K/uL (0.7-4.9); Hematocrit 43.5 % (39.6-49.0); Lymphocytes % 5.2 % (15.3-44.8); MCV 81.8 fL (80-100); MPV 9.3 fL (7.6-11.3); Platelets 180 thou/uL (152-406); RBC Red Blood Cell Count 5.32 M/uL (4.33-5.43)
[2023-07-13 05:32] LABS: Potassium 3.2 mEq/L (3.5-5.1)
[2023-07-13 05:33] LABS: Magnesium 1.7 mg/dL (1.6-2.4); Phosphorus 2.4 mg/dL (2.5-4.9)
[2023-07-13] MEDS ORDERED: MAGNESIUM SULFATE 1 gm IVPB 1 GM/100 ML BAG IV ONE (06:30)
--- NOTE | 2023-07-13 07:45 | P.PN ---
Subjective Date of Service: 07/13/23 Chief Complaint: Enterocolitis Subjective: Improving Review of Systems 10-point ROS is otherwise unremarkable Physical Examination - Vital Signs Temperature: 98.3 F Blood Pressure: 104/59 Pulse: 93 Respirations: 16 Pulse Ox (%): 100 - Physical Exam General: In no apparent distress, Oriented x3 HEENT: Atraumatic, Normocephalic Neck: Supple, 2+ carotid pulse no bruit Respiratory: Clear to auscultation bilaterally, Normal air movement Cardiovascular: No edema, Normal pulses Capillary refill: <2 Seconds Gastrointestinal: Normal bowel sounds, Soft and benign Musculoskeletal: No clubbing, No swelling Integumentary: No rashes, No breakdown Neurological: Normal speech, Normal strength at 5/5 x4 extr - Studies Laboratory Data (last 24 hrs) 07/12/23 07/12/23 21:10 21:10 WBC 12.60 H Hgb 16.9 Hct 51.0 H Plt Count 242 Sodium 129 L Potassium 3.9 BUN 17 Creatinine 1.24 Glucose 127 H Total Bilirubin 0.8 AST 28 ALT 30 Alkaline Phosphatase 92 Lipase 14 Microbiology Data (last 24 hrs): 07/12/23 21:16 Nasopharnyx Influenza Type A Antigen Screen - Final 07/12/23 21:16 Nasopharnyx Influenza Type B Antigen Screen - Final Assessment And Plan - Plan Assessment plan Sepsis without shock secondary to enterocolitis Lactic acidosis Intractable nausea vomiting Flagyl, Rocephin, as needed antiemetics Clear liquid diet Hyponatremia IV fluids - Plan Patient is admitted for further management of sepsis secondary to enterocolitis. Unclear if bacterial or viral, however patient does meet sepsis criteria. Blood cultures, urine cultures Received rocephin and flagyl in ED. Will continue to cover possible bacterial source. Continue IV hydration, clear liquid diet until patient can tolerate further. Full code DVT Lovenox Clear liquid diet Discharge Plan: Home Plan to discharge in: 48 Hours - Code Status/Comfort Care Code Status: Full Code Physician Review: Patient Assessed, Agree with Above Assessment and Plan Critical Care: No Time Spent Managing PTS Care (In Minutes): 35
[2023-07-13] MEDS ORDERED: SODIUM CHLORIDE 0.9% 10ML INJ IV PRN (07:54)
[2023-07-13] MEDS: POTASS/SODIUM PHOSPHATE 1 PKT POWD.PACK PO SCH ×3 (08:34→10:33)
[2023-07-13] MEDS ORDERED: POTASSIUM CL SA 10 MEQ TAB PO ONE (09:00)
[2023-07-13] MEDS ORDERED: LACTOBACILLUS/ACIDOPHILUS TAB PO SCH (09:00)
[2023-07-13] MEDS ORDERED: CIPROFLOXACIN 400mg IV 400 MG/200 ML BAG IV SCH (09:00)
[2023-07-13] MEDS ORDERED: CEFTRIAXONE 1,000 MG in NA CHLORIDE 0.9% 50 ML IVPB SCH (09:00)
[2023-07-13] MEDS ORDERED: PANTOPRAZOLE 40 MG INJ IVP SCH (09:00)
[2023-07-13 15:52] VITALS: BP 104/59; TEMP 98.2
--- NOTE | 2023-07-13 17:23 | P.DS ---
Admission Date: 07/12/23 Discharge Date: 07/13/23 Disposition: ROUTINE DISCHARGE Discharge Condition: GOOD Reason for Admission: Enterocolitis Brief History of Present Illness: 32-year-old male who presented to the emergency department with complaints of abdominal pain, nausea, vomiting, and diarrhea x3 days. brought him in because his symptoms are worsening and he could no longer hold any food or liquid down. He was mildly tachycardic at 104 with a low-grade fever of 99.1 upon arrival to the emergency department. His work-up revealed a white blood cell count of 12.6 with left shift, bandemia of 52%, sodium 129, chloride 94. His CT showed "inflammatory wall thickening segmentally along the ileum and proximal colon, with diffusely fluid-filled nondistended bowel. Findings suggest infectious or inflammatory enterocolitis." He was still vomiting despite Zofran and Reglan. He was additionally given 2L of IV fluids, Toradol, Rocephin, and Flagyl. ED provider wishes to admit patient for further management of acute enterocolitis and intractable nausea and vomiting. General: In no apparent distress, Oriented x3 HEENT: Atraumatic, Normocephalic Neck: Supple, 2+ carotid pulse no bruit Respiratory: Clear to auscultation bilaterally, Normal air movement Cardiovascular: No edema, Normal pulses Capillary refill: <2 Seconds Gastrointestinal: Normal bowel sounds, Soft and benign Musculoskeletal: No clubbing, No swelling Integumentary: No rashes, No breakdown Neurological: Normal speech, Normal strength at 5/5 x4 extr Hospital Course: While in the hospital patient treated for Assessment plan Sepsis without shock secondary to enterocolitis-improved Tolerating p.o. diet no leukocytosis upon discharge Lactic acidosis-resolved Intractable nausea vomiting-resolved Flagyl, Rocephin, as needed antiemetics-while in hospital stay Advance diet as tolerated Vital Signs/Physical Exam: Temp Pulse Resp BP Pulse Ox 98.2 F 74 17 104/59 L 100 07/13/23 15:49 07/13/23 15:49 07/13/23 15:49 07/13/23 15:49 07/13/23 15:49 Laboratory Data at Discharge: WBC 10.70 thou/uL (4.3-10.9) 07/13/23 02:56 Hgb 14.2 g/dL (13.6-17.9) D 07/13/23 02:56 Hct 43.5 % (39.6-49.0) 07/13/23 02:56 Plt Count 180 thou/uL (152-406) 07/13/23 02:56 Sodium 132 mEq/L (136-145) L 07/13/23 02:56 Potassium 3.2 mEq/L (3.5-5.1) L D 07/13/23 02:56 BUN 17 mg/dL (7-18) 07/13/23 02:56 Creatinine 1.10 mg/dL (0.70-1.30) 07/13/23 02:56 Glucose 138 mg/dL (74-106) H 07/13/23 02:56 Phosphorus 2.4 mg/dL (2.5-4.9) L 07/13/23 02:56 Magnesium 1.7 mg/dL (1.6-2.4) 07/13/23 02:56 Total Bilirubin 0.8 mg/dL (0.2-1.0) 07/12/23 21:10 AST 28 U/L (15-37) 07/12/23 21:10 ALT 30 U/L (16-61) 07/12/23 21:10 Alkaline Phosphatase 92 U/L (45-117) 07/12/23 21:10 Lipase 14 U/L (13-75) 07/12/23 21:10 Home Medications: Ciprofloxacin HCl [Cipro] 500 mg PO BID 10 Days #20 tab 07/13/23 metroNIDAZOLE [Metronidazole] 500 mg PO Q8H 7 Days #21 tab 07/13/23 New Medications: Ciprofloxacin HCl [Cipro] 500 mg PO BID 10 Days #20 tab metroNIDAZOLE [Metronidazole] 500 mg PO Q8H 7 Days #21 tab Physician Discharge Instructions: -Please call nursing station [phone] if you have any questions regarding y our medications, or hospital stay -Please return to the emergency department if your symptoms worsen Discharge home medications ciprofloxacin 500 mg 1 tablet twice daily for 10 days Metronidazole 500 mg 1 tablet every 8 hours for 7 days take until gone Physician Discharge Instructions: -DC IV and DC home -Please call Dr. Gaston at [phone] if any questions regarding hospital stay -Please call nursing station at [phone] if any nursing or medication questions -Return to the emergency room if symptoms worsen Diet: [place], advance diet as tolerated Activity: Fall precautions Followup: NONE,NONE [Primary Care Provider] -
[2023-07-13] MEDS ORDERED: metroNIDAZOLE 500 MG TABLET PO SCH (21:00)
[2023-07-13] MEDS ORDERED: CIPROFLOXACIN HCL 500 MG TAB PO SCH (21:00)
== END 2023-07-13 19:15 | disposition home or self-care (01) ==
LOC: ER 20:49 → ERHOLD 23:05 → 4TH 23:25
PROVIDERS: ADMIT Hospitalist; ATTEND Hospitalist
DX: K52.9 Noninfective gastroenteritis and colitis, unspecified (principal); A41.9 Sepsis, unspecified organism; E87.20 Acidosis, unspecified; F17.210 Nicotine dependence, cigarettes, uncomplicated; E87.1 Hypo-osmolality and hyponatremia; Z88.0 Allergy status to penicillin
CPT/HCPCS: 87040 ×2; 85025 ×2; 81001; 80048; 36415 ×2; 83735; 84100; 84132; 83605 ×5; 83690; 80053; 87635; 87804 ×2; 74177; 82077; Q9967; J3475; J2765; C9113; J2405; J0744; J7030 ×5; J0696 ×2; G0378